=== PATIENT | female | born 1950 | race African-American/Black ===

== ENCOUNTER 2017-03-21 07:33 | Emergency (ER) | payer MEDICARE, BC, OTHER | END 2017-03-21 08:07 | disposition home or self-care (01) | LOC: NAV ERS 07:33 | DX: R05 Cough (principal); I10 Essential (primary) hypertension; K21.9 Gastro-esophageal reflux disease without esophagitis; F17.210 Nicotine dependence, cigarettes, uncomplicated; Z79.899 Other long term (current) drug therapy | CPT/HCPCS: 99283 ==

== ENCOUNTER 2017-05-19 08:03 | Emergency (ER) | payer MEDICARE, OTHER ==
--- NOTE | 2017-05-19 09:31 | RAD ---
CHEST TWO VIEWS: History: Cough. Comparison: 03-31-15 FINDINGS: Lungs are without focal airspace consolidation, pneumothorax, or effusion. There is mild tortuosity o f the thoracic aorta. Cardiac silhouette is similar. No pneumothorax. No acute osseous abnormality. IMPRESSION: No acute intrathoracic abnormality. POS: [facility]
== END 2017-05-19 09:37 | disposition home or self-care (01) ==
LOC: NAV ERS 08:03
DX: J20.9 Acute bronchitis, unspecified (principal); M19.90 Unspecified osteoarthritis, unspecified site; I10 Essential (primary) hypertension; K21.9 Gastro-esophageal reflux disease without esophagitis; Z87.891 Personal history of nicotine dependence; Z79.82 Long term (current) use of aspirin; Z79.899 Other long term (current) drug therapy
CPT/HCPCS: 71046

== ENCOUNTER 2017-06-02 08:10 | Emergency (ER) | payer MEDICARE, OTHER ==
[2017-06-02] MEDS ORDERED: predniSONE 20 MG TAB ONE (08:36)
--- NOTE | 2017-06-02 09:37 | RAD ---
2 VIEWS CHEST: Date: 06/02/17 COMPARISON: 05/19/17. HISTORY: Cough and wheezing for 1 week. FINDINGS: Two views of the chest show normal sized cardiomediastinal silhouette. There is no evidence of consol idation, mass, or pleural effusion. The bones are unremarkable. IMPRESSION: No evidence of acute cardiopulmonary disease. POS: [facility]
== END 2017-06-02 10:20 | disposition home or self-care (01) ==
LOC: NAV ERS 08:10
DX: J20.9 Acute bronchitis, unspecified (principal); M19.90 Unspecified osteoarthritis, unspecified site; J21.9 Acute bronchiolitis, unspecified; Z87.891 Personal history of nicotine dependence; Z79.899 Other long term (current) drug therapy
CPT/HCPCS: 71046; 94640; J7506; J7620

== ENCOUNTER 2017-07-05 09:40 | Emergency (ER) | payer MEDICARE, OTHER ==
[2017-07-05] MEDS ORDERED: predniSONE 20 MG TAB ONE (10:02)
[2017-07-05] MEDS ORDERED: Azithromycin 250 MG TAB ONE (11:03)
--- NOTE | 2017-07-05 11:23 | RAD ---
CHEST 2 VIEWS: Date: 07/05/17 HISTORY: Cough and shortness of breath x1 month. Symptoms are not improving. COMPARISON: 06/02/17. FINDINGS: Normal cardiac silhouette. Pulmonary vessels and hilum are normal. Costophrenic angles are clear. No masses or consolidation. No pneumothorax or osseous abnormalities. IMPRESSION: No acute cardiopulmonary process. POS: [facility]
== END 2017-07-05 11:31 | disposition home or self-care (01) ==
LOC: NAV ERS 09:40
DX: J20.9 Acute bronchitis, unspecified (principal); I10 Essential (primary) hypertension; K21.9 Gastro-esophageal reflux disease without esophagitis; Z87.891 Personal history of nicotine dependence; Z79.899 Other long term (current) drug therapy
CPT/HCPCS: 71046; 94640; J7506; J7620

== ENCOUNTER 2017-08-10 08:22 | Emergency (ER) | payer MEDICARE, OTHER ==
[2017-08-10] MEDS ORDERED: Albuterol Sulfate 2.5 mg/0.5 ml Neb ONE (08:44)
--- NOTE | 2017-08-10 09:14 | RAD ---
PA AND LATERAL OF THE CHEST: INDICATION: History of cough. COMPARISON: Prior study dated 07/05/17. FINDINGS: The aorta is tortuous. Heart size is normal. No airspace consolidation or pleural effusion is noted . No acute osseous abnormality is evident. IMPRESSION: No acute cardiopulmonary abnormality. POS: [facility]
[2017-08-10] MEDS ORDERED: predniSONE 20 MG TAB ONE (09:32)
== END 2017-08-10 09:45 | disposition home or self-care (01) ==
LOC: NAV ERS 08:22
DX: J44.1 Chronic obstructive pulmonary disease with (acute) exacerbation (principal); K21.9 Gastro-esophageal reflux disease without esophagitis; M19.90 Unspecified osteoarthritis, unspecified site; I10 Essential (primary) hypertension; Z79.899 Other long term (current) drug therapy; Z79.82 Long term (current) use of aspirin
CPT/HCPCS: 71046; 94640; J7506; J7611; J7620

== ENCOUNTER 2019-12-12 13:49 | Emergency (ER) | payer MEDICARE, OTHER ==
[2019-12-12 14:21] LABS: #Basophils 0.1 thou/uL (0.0-0.2); #Eosinphils 0.5 thou/uL (0.0-0.7); #Lymphocytes 1.8 thou/uL (1.20-3.40); #Monocytes 0.7 thou/uL (0.11-0.59); #Neutrophils 2.9 thou/uL (1.40-6.50); %Basophils 1.6 % (0.0-1.0); %Eosinophils 7.9 % (0.0-10.0); %Lymphocytes 30.9 % (21.0-51.0); %Monocytes 11.8 % (0.0-10.0); %Neutrophils 47.8 % (42.0-75.0); Hemoglobin 13.2 g/dL (12.0-16.0); Mean Corpuscular HGB CONC 31.2 g/dL (32.0-36.0); Mean Corpuscular Hemoglobin 29.8 pg (27.0-31.0); Mean Corpuscular Volume 95.7 fL (78.0-98.0); Mean Platelet Volume 7.6 fL (7.4-10.4); Platelet Count 200 thou/uL (130-400); RBC Distribution Width 12.1 % (11.5-14.5); Red Blood Cell (RBC) Count 4.44 mill/uL (4.20-5.40)
[2019-12-12] MEDS ORDERED: Ventolin HFA Inhaler 60 PUFF INHALER ONE (14:21)
[2019-12-12] MEDS ORDERED: methylPREDNISolone Sod Succ/PF 125 MG/2 ML VIAL ONE (14:21)
--- NOTE | 2019-12-12 14:37 | RAD ---
EXAM: Single view of the chest HISTORY: Dyspnea COMPARISON: 03/21/2015 FINDINGS: Single view of the chest shows a normal sized cardiomediastinal silhouette. There is no katja dence of consolidation, mass, or pleural effusion. Degenerative changes are seen in the spine. IMPRESSION: No evidence of acute cardiopulmonary disease
[2019-12-12 14:55] LABS: ALT (SGPT) 17 U/L (8-55); AST (SGOT) 36 U/L (5-34); Alkaline Phosphatase 63 U/L (40-110); Anion Gap 19 mmol/L (10-20); BUN (Urea Nitrogen) 32 mg/dL (9.8-20.1); Bilirubin, Total 0.5 mg/dL (0.2-1.2); Calc. Creatinine Clearance 0 mL/min (70-130); Calcium 8.9 mg/dL (7.8-10.44); Carbon Dioxide 18 mmol/L (23-31); Chloride 110 mmol/L (98-107); Estimated GFR-MDRD 39; Globulin 4.1 g/dL (2.4-3.5); Glucose 122 mg/dL (80-115); Potassium 3.5 mmol/L (3.5-5.1); Protein, Total 8.1 g/dL (6.0-8.3); Sodium 143 mmol/L (136-145)
[2019-12-12] MEDS ORDERED: AMOXicillin 250 MG CAP ONE (15:20)
[2019-12-13 14:09] LABS: SARS-CoV-2 MS2 Positive; SARS-CoV-2 N Gene Negative; SARS-CoV-2 S Gene Negative; SARS-CoV-2 by NAA Not Detected (NotDetected); SARS-CoV-2 orf1ab Negative
== END 2019-12-12 15:37 | disposition home or self-care (01) ==
LOC: NAV ERS 13:49
DX: J44.1 Chronic obstructive pulmonary disease with (acute) exacerbation (principal); K21.9 Gastro-esophageal reflux disease without esophagitis; M19.90 Unspecified osteoarthritis, unspecified site; I10 Essential (primary) hypertension; Z79.82 Long term (current) use of aspirin; Z79.899 Other long term (current) drug therapy
CPT/HCPCS: 71045; 80053; 83605; 83880; 84484; 85025; 85379; 87635; 93005; 94760; 96374; J2930; U0003

== ENCOUNTER 2020-04-01 09:37 | Emergency (ER) | payer MEDICARE ==
[2020-04-01] MEDS ORDERED: Meclizine HCl 25 MG TAB ONE (10:13)
[2020-04-01] MEDS ORDERED: Ondansetron PF 4 MG/2 ML Vial ONE ×2 (10:13→11:09)
--- NOTE | 2020-04-01 10:23 | CT ---
CT Brain WO Con History: Dizziness Comparison: None. Findings: No acute hemorrhage or infarct. Extensive microvascular ischemic changes of the subcortical and deep white matter. No midline shift or mass effect. Calvarium is intact. Paranasal sinuses and mastoids are clear. Impression: Chronic findings. No acute hemorrhage or infarct.
[2020-04-01 10:30] LABS: #Eosinphils 0.1 thou/uL (0.0-0.7); #Lymphocytes 1.1 thou/uL (1.20-3.40); #Monocytes 0.5 thou/uL (0.11-0.59); %Basophils 0.8 % (0.0-1.0); %Eosinophils 2.1 % (0.0-10.0); %Lymphocytes 30.1 % (21.0-51.0); %Monocytes 12.3 % (0.0-10.0); %Neutrophils 54.7 % (42.0-75.0); Hemoglobin 13.2 g/dL (12.0-16.0); Mean Corpuscular HGB CONC 32.7 g/dL (32.0-36.0); Mean Corpuscular Hemoglobin 31.2 pg (27.0-31.0); Mean Corpuscular Volume 95.6 fL (78.0-98.0); Mean Platelet Volume 7.1 fL (7.4-10.4); Platelet Count 172 thou/uL (130-400); RBC Distribution Width 12.1 % (11.5-14.5); Red Blood Cell (RBC) Count 4.22 mill/uL (4.20-5.40); White Blood Cell (WBC) Count 3.6 thou/uL (4.8-10.8)
[2020-04-01 10:43] LABS: ALT (SGPT) 18 U/L (8-55); AST (SGOT) 25 U/L (5-34); Albumin 3.7 g/dL (3.4-4.8); Alkaline Phosphatase 55 U/L (40-110); Anion Gap 13 mmol/L (10-20); BUN (Urea Nitrogen) 24 mg/dL (9.8-20.1); Bilirubin, Total 0.5 mg/dL (0.2-1.2); Calc. Creatinine Clearance 0 mL/min (70-130); Carbon Dioxide 24 mmol/L (23-31); Chloride 109 mmol/L (98-107); Globulin 3.9 g/dL (2.4-3.5); Glucose 114 mg/dL (80-115); Potassium 3.1 mmol/L (3.5-5.1); Protein, Total 7.6 g/dL (6.0-8.3); Sodium 143 mmol/L (136-145)
[2020-04-01] MEDS ORDERED: Potassium Chloride 20 MEQ TAB ONE ×2 (10:49→10:50)
[2020-04-01] MEDS ORDERED: Aspirin 325 MG TAB ONE (11:00)
--- NOTE | 2020-04-01 11:00 | RAD ---
PORTABLE CHEST: HISTORY: Syncope. COMPARISON: 12/12/2019 exam. FINDINGS: Heart size is within normal limits. There are atherosclerotic changes of the aorta. The lungs are c lear of any infiltrative process. IMPRESSION: No active intrathoracic disease. POS: [facility]
== END 2020-04-01 12:13 | disposition short-term general hospital (02) ==
LOC: NAV ERS 09:37
DX: E87.6 Hypokalemia (principal); R42 Dizziness and giddiness; R22.0 Localized swelling, mass and lump, head; M19.90 Unspecified osteoarthritis, unspecified site; J44.9 Chronic obstructive pulmonary disease, unspecified; K21.9 Gastro-esophageal reflux disease without esophagitis; I10 Essential (primary) hypertension; Z87.891 Personal history of nicotine dependence; Z79.82 Long term (current) use of aspirin; Z79.899 Other long term (current) drug therapy
CPT/HCPCS: 70450; 71045; 80053; 84484; 85025; 93005; 94760; 96374; 96376; J2405

== ENCOUNTER 2021-10-24 11:48 | Emergency (ER) | payer MEDICARE | END 2021-10-24 12:26 | disposition home or self-care (01) | LOC: NAV ERS 11:48 | DX: J30.9 Allergic rhinitis, unspecified (principal); J44.9 Chronic obstructive pulmonary disease, unspecified; K21.9 Gastro-esophageal reflux disease without esophagitis; I10 Essential (primary) hypertension; M19.90 Unspecified osteoarthritis, unspecified site; F17.210 Nicotine dependence, cigarettes, uncomplicated; Z20.822 Contact with and (suspected) exposure to COVID-19 | CPT/HCPCS: 99283; U0003; U0005 ==

== ENCOUNTER 2021-11-22 08:39 | Emergency (ER) | payer MEDICARE, OTHER ==
[2021-11-22] MEDS ORDERED: Acetaminophen 500 MG TAB ONE (09:33)
[2021-11-22 09:38] LABS: #Basophils 0.1 thou/uL (0.0-0.2); #Eosinphils 0.1 thou/uL (0.0-0.7); #Monocytes 0.4 thou/uL (0.11-0.59); #Neutrophils 2.9 thou/uL (1.40-6.50); %Basophils 0.9 % (0.0-1.0); %Eosinophils 1.4 % (0.0-10.0); %Lymphocytes 36.6 % (21.0-51.0); %Monocytes 7.3 % (0.0-10.0); %Neutrophils 53.8 % (42.0-75.0); Hemoglobin 12.4 g/dL (12.0-16.0); Mean Corpuscular HGB CONC 31.4 g/dL (32.0-36.0); Mean Corpuscular Hemoglobin 31.3 pg (27.0-31.0); Mean Corpuscular Volume 99.8 fL (78.0-98.0); Mean Platelet Volume 8.7 fL (7.4-10.4); Platelet Count 185 thou/uL (130-400); RBC Distribution Width 12.4 % (11.5-14.5); Red Blood Cell (RBC) Count 3.94 mill/uL (4.20-5.40); White Blood Cell (WBC) Count 5.4 thou/uL (4.8-10.8)
[2021-11-22 09:59] LABS: ALT (SGPT) 18 U/L (8-55); AST (SGOT) 33 U/L (5-34); Albumin 3.5 g/dL (3.4-4.8); Alkaline Phosphatase 51 U/L (40-110); Anion Gap 18 mmol/L (10-20); BUN (Urea Nitrogen) 30 mg/dL (9.8-20.1); Bilirubin, Total 0.5 mg/dL (0.2-1.2); CK (CPK) 535 U/L (29-168); Calc. Creatinine Clearance 0 mL/min (70-130); Calcium 7.9 mg/dL (7.8-10.44); Carbon Dioxide 20 mmol/L (23-31); Chloride 109 mmol/L (98-107); Estimated GFR 34; Globulin 3.7 g/dL (2.4-3.5); Glucose 119 mg/dL (83-110); Potassium 3.6 mmol/L (3.5-5.1); Protein, Total 7.2 g/dL (5.8-8.1); Sodium 143 mmol/L (136-145)
== END 2021-11-22 10:39 | disposition home or self-care (01) ==
LOC: NAV ERS 08:39
DX: S13.4XXA Sprain of ligaments of cervical spine, initial encounter (principal); I44.0 Atrioventricular block, first degree; I10 Essential (primary) hypertension; K21.9 Gastro-esophageal reflux disease without esophagitis; M19.90 Unspecified osteoarthritis, unspecified site; J44.9 Chronic obstructive pulmonary disease, unspecified; F17.210 Nicotine dependence, cigarettes, uncomplicated; X50.0XXA Overexertion from strenuous movement or load, initial encounter; Y93.F2 Activity, caregiving, lifting
CPT/HCPCS: 71045; 80053; 82550; 84484; 85025; 85379; 93005

== ENCOUNTER 2023-02-02 09:31 | Emergency (ER) | payer OTHER ==
[2023-02-02] MEDS ORDERED: Ketorolac Tromethamine 30 MG/ML VIAL ONE (10:39)
== END 2023-02-02 10:37 | disposition home or self-care (01) ==
LOC: NAV ERS 09:31
DX: M79.672 Pain in left foot (principal); J44.9 Chronic obstructive pulmonary disease, unspecified; K21.9 Gastro-esophageal reflux disease without esophagitis; I10 Essential (primary) hypertension; F17.210 Nicotine dependence, cigarettes, uncomplicated; Z79.899 Other long term (current) drug therapy; Z79.82 Long term (current) use of aspirin
CPT/HCPCS: 96372; J1885

== ENCOUNTER 2023-02-05 10:40 | Emergency (ER) | payer OTHER ==
[~2023-02-05 10:40] MED LIST: Iopamidol 370 76% 100 ML VIAL ONE
[2023-02-05] MEDS ORDERED: Ondansetron PF 4 MG/2 ML Vial ONE ×2 (11:18→12:48)
[2023-02-05 11:22] LABS: #Basophils 0.1 thou/uL (0.0-0.2); #Lymphocytes 1.1 thou/uL (1.20-3.40); #Monocytes 0.7 thou/uL (0.11-0.59); #Neutrophils 3.9 thou/uL (1.40-6.50); %Basophils 0.9 % (0.0-1.0); %Eosinophils 0.3 % (0.0-10.0); %Lymphocytes 19.3 % (21.0-51.0); %Monocytes 12.6 % (0.0-10.0); %Neutrophils 66.9 % (42.0-75.0); Hematocrit 37.9 % (36.0-47.0); Hemoglobin 12.3 g/dL (12.0-16.0); Mean Corpuscular HGB CONC 32.5 g/dL (32.0-36.0); Mean Corpuscular Hemoglobin 31.6 pg (27.0-31.0); Mean Corpuscular Volume 97.3 fl (78.0-98.0); Mean Platelet Volume 8.3 fL (7.4-10.4); Platelet Count 180 10x3/uL (130-400); RBC Distribution Width 10.9 % (11.5-14.5); Red Blood Cell (RBC) Count 3.89 mill/uL (4.20-5.40); White Blood Cell (WBC) Count 5.8 10x3/uL (4.8-10.8)
[2023-02-05 11:40] LABS: ALT (SGPT) 9 U/L (8-55); AST (SGOT) 22 U/L (5-34); Albumin 3.6 g/dL (3.4-4.8); Alkaline Phosphatase 52 U/L (40-110); Anion Gap 18 mmol/L (10-20); BUN (Urea Nitrogen) 27 mg/dL (9.8-20.1); Bilirubin, Total 1.1 mg/dL (0.2-1.2); Calc. Creatinine Clearance 0 mL/min (70-130); Calcium 7.7 mg/dL (7.8-10.44); Carbon Dioxide 21 mmol/L (23-31); Chloride 104 mmol/L (98-107); Estimated GFR 35; Globulin 4.5 g/dL (2.4-3.5); Glucose 110 mg/dL (83-110); Lipase 26 U/L (8-78); Potassium 3.5 mmol/L (3.5-5.1); Protein, Total 8.1 g/dL (5.8-8.1); Sodium 139 mmol/L (136-145); Troponin I 0.041 ng/mL (< 0.028)
[2023-02-05] MEDS ORDERED: Sodium Chloride 0.9% 500 ML ONE (12:48)
[2023-02-05] MEDS ORDERED: Piperacillin/Tazobactam 3.375 GM VIAL ONE (12:49)
[2023-02-05] MEDS ORDERED: Morphine 4 MG/ML VIAL ONE (12:49)
[2023-02-05] MEDS ORDERED: Sodium Chloride 0.9% 100 ML ONE (12:50)
[2023-02-05] MEDS ORDERED: Amoxicillin/Potassium Clav 875 MG TAB ONE (13:57)
== END 2023-02-05 14:15 | disposition home or self-care (01) ==
LOC: NAV ERS 10:40
DX: K35.80 Unspecified acute appendicitis (principal); I10 Essential (primary) hypertension; J44.9 Chronic obstructive pulmonary disease, unspecified; K21.9 Gastro-esophageal reflux disease without esophagitis; M19.90 Unspecified osteoarthritis, unspecified site; F17.210 Nicotine dependence, cigarettes, uncomplicated; Z79.82 Long term (current) use of aspirin; Z79.899 Other long term (current) drug therapy
CPT/HCPCS: 74177; 80053; 83690; 84484; 85025; 93005; 96365; 96375; 96376; J2270; J2405; J2543; J3490; J7030; Q9967